=== PATIENT | female | born 1985 | race Caucasian/White ===

== ENCOUNTER 2016-08-29 19:05 | Emergency (ER) | payer OTHER ==
[~2016-08-29] VITALS: Ht 160 cm; Wt 98.8 kg
[2016-08-29 19:13] VITALS: TEMP 37; Ht 160 cm; Wt 98.8 kg
[2016-08-29] MEDS ORDERED: SODIUM CHLORIDE 0.9% 1000ML 500 ML IV STA (20:45)
[2016-08-29] MEDS ORDERED: SODIUM CHLORIDE 0.9% 1000ML 1,000 ML IV STA (20:45)
--- NOTE | 2016-08-29 20:59 | EMERGENCY ROOM VISIT NOTE ---
History Report prepared by Otto: Brianna Jalloh Under the Supervision of: Dr. Lui Patel M.D. First contact with patient: 20:40 Chief Complaint: ED VAG BLEEDING Stated Complaint: VAGINAL BLEEDING, RIGHT SIDE ABDOMINAL PAIN History of Present Illness The patient is a 31 year old female who presents to the Emergency Room with complaints of intermittent vaginal bleeding starting a few weeks ago and worsening last night. She describes quality of the bleeding to be a brown-red in color. She denies any blood in urine or abnormal vaginal discharge. She reports intermittent, right sided abdominal pain occurring for the past few years and worsening in the past 6 months. She currently rates a pain intensity of 7/10. She has been taking Tylenol and Ibuprofen without relief. She has lost weight in the past few months. She denies fevers, cough, cold, congestion, new issues with bowel movements, or any other complaints. The patient has a history of PCOS, hysterectomy, Bartholin cyst, and cholecystectomy. She denies any history of oophorectomy and appendectomy. She last had an abdominal CT scan about a month and a half ago. Source of History: patient Onset: a few weeks ago Position: other (global) Quality: other (vaginal bleeding) Timing: intermittent, worsening Associated Symptoms: + abdominal pain, No cough, No fevers Review of Systems See HPI for pertinent positives & negatives. A total of 10 systems reviewed and were otherwise negative. Past Medical & Surgical Medical Problems: (1) Bartholin cyst (2) PCOS (polycystic ovarian syndrome) Surgical Problems: (1) H/O: hysterectomy (2) Hx of cholecystectomy Family History Patient reports no known family medical history. Social History Smoking Status: Current Every Day Smoker Marital Status: single Occupation Status: employed Current/Historical Medications Scheduled Metformin Hcl (Glucophage), 500 MG PO QAM Metformin Hcl (Glucophage), 1,000 MG PO QPM Spironolactone (Aldactone), 50 MG PO BID Scheduled PRN Acetaminophen (Tylenol), 1,000 MG PO Q6H PRN for Pain or Fever Ibuprofen (Motrin), 600 MG PO Q8 PRN for Pain Allergies Coded Allergies: Cyclobenzaprine (Verified Allergy, Severe, INCREASES ANXIETY, 08/29/16) Haloperidol (Verified Allergy, Severe, INCREASES ANXIETY, 08/29/16) Hyoscyamine (Verified Allergy, Severe, ANAPHYLAXIS, 08/29/16) Meloxicam (Verified Allergy, Severe, HIVES, 08/29/16) Ondansetron (Verified Allergy, Severe, HIVES, 08/29/16) Orphenadrine (Verified Allergy, Severe, INCREASE ANXIETY, 08/29/16) Sodium Metabisulfite (Verified Allergy, Severe, INCREASES ANXIETY, 08/29/16 ) Sulfa Antibiotics (Verified Allergy, Severe, HIVES-N/V, 08/29/16) Cephalexin (Verified Allergy, Intermediate, DIARRHEA, 08/29/16) Methocarbamol (Verified Allergy, Intermediate, RASH, 08/29/16) Nitrofurantoin (Verified Allergy, Intermediate, DIARRHEA-NAUSEA, 08/29/16) Promethazine (Verified Allergy, Intermediate, GI SYMPTOMS, 08/29/16) Sertraline (Verified Allergy, Intermediate, TMJ REACTION, 08/29/16) Uncoded Allergies: SALIDEX (Allergy, Severe, HIVES, 08/29/16) Physical Exam Vital Signs Date Time Temp Pulse Resp B/P Pulse Ox O2 Delivery O2 Flow Rate FiO2 08/29/16 23:09 64 16 122/84 98 Room Air 08/29/16 22:06 78 18 125/80 98 Room Air 08/29/16 19:13 37.0 79 16 133/85 100 Room Air Physical Exam GENERAL: Patient is in no acute distress. HEENT: No acute trauma, normocephalic atraumatic, mucous membranes moist, no nasal congestion, no scleral icterus. NECK: No stridor, no adenopathy, no meningismus, trachea is midline. LUNGS: Clear to auscultation bilaterally, no wheeze, no rhonchi, breath sounds equal. HEART: Without murmurs gallops or rubs, regular rate and rhythm. ABDOMEN: Soft, tenderness in the right lower quadrant and right pelvis, bowel sounds positive, no hernias, no peritonitis. PELVIC EXAM: No discharge noted externally, speculum exam revealed no blood, no concerning discharge. EXTREMITIES: No cyanosis or edema, full range of motion of all the joints without pain or difficulty, no signs for acute trauma. NEUROLOGIC: Oriented x 3, no acute motor or sensory deficits, no focal weakness. SKIN: No rash, no jaundice, no diaphoresis. Medical Decision & Procedures ER Provider Diagnostic Interpretation: US results as stated below per my review and radiologist interpretation: PELVIC ULTRASOUND, TRANSABDOMINAL AND TRANSVAGINAL HISTORY: Vaginal bleeding. COMPARISON: None. FINDINGS: Uterus: Surgically absent. Right ovary: Obscured by overlying bowel gas. Left ovary: Obscured by overlying bowel gas. Miscellaneous:No pelvic free fluid. IMPRESSION: 1. No significant abnormality identified within the pelvis. 2. The uterus is surgically absent. 3. The ovaries were obscured by overlying bowel gas. Electronically signed by: Gilles Li M.D. 08/29/2016 10:02 PM Dictated Date/Time: 08/29/2016 10:01 PM Laboratory Results 08/29/16 21:01 Red Blood Count 4.83, Mean Corpuscular Volume 89.4, Mean Corpuscular Hemoglobin 30.4, Mean Corpuscular Hemoglobin Concent 34.0, Mean Platelet Volume 10.0, Neutrophils (%) (Auto) 70.5, Lymphocytes (%) (Auto) 21.4, Monocytes (%) (Auto) 5.2, Eosinophils (%) (Auto) 2.4, Basophils (%) (Auto) 0.2, Neutrophils # (Auto) 8.06, Lymphocytes # (Auto) 2.45, Monocytes # (Auto) 0.59, Eosinophils # (Auto) 0.28, Basophils # (Auto) 0.02 08/29/16 21:01 Test 08/29/16 21:01 08/29/16 22:10 White Blood Count 11.43 K/uL (4.8-10.8) Red Blood Count 4.83 M/uL (4.2-5.4) Hemoglobin 14.7 g/dL (12.0-16.0) Hematocrit 43.2 % (37-47) Mean Corpuscular Volume 89.4 fL (80-100) Mean Corpuscular Hemoglobin 30.4 pg (25-34) Mean Corpuscular Hemoglobin Concent 34.0 g/dl (32-36) Platelet Count 287 K/uL (130-400) Mean Platelet Volume 10.0 fL (7.4-10.4) Neutrophils (%) (Auto) 70.5 % Lymphocytes (%) (Auto) 21.4 % Monocytes (%) (Auto) 5.2 % Eosinophils (%) (Auto) 2.4 % Basophils (%) (Auto) 0.2 % Neutrophils # (Auto) 8.06 K/uL (1.4-6.5) Lymphocytes # (Auto) 2.45 K/uL (1.2-3.4) Monocytes # (Auto) 0.59 K/uL (0.11-0.59) Eosinophils # (Auto) 0.28 K/uL (0-0.5) Basophils # (Auto) 0.02 K/uL (0-0.2) RDW Standard Deviation 42.9 fL (36.4-46.3) RDW Coefficient of Variation 13.1 % (11.5-14.5) Immature Granulocyte % (Auto) 0.3 % Immature Granulocyte # (Auto) 0.03 K/uL (0.00-0.02) Anion Gap 7.0 mmol/L (3-11) Est Creatinine Clear Calc Drug Dose 119.7 ml/min Estimated GFR () 120.1 Estimated GFR (Non- 103.6 BUN/Creatinine Ratio 11.2 (10-20) Calcium Level 8.5 mg/dl (8.5-10.1) Total Bilirubin 0.3 mg/dl (0.2-1) Aspartate Amino Transf (AST/SGOT) 12 U/L (15-37) Alanine Aminotransferase (ALT/SGPT) 19 U/L (12-78) Alkaline Phosphatase 107 U/L (45-117) Total Protein 7.7 gm/dl (6.4-8.2) Albumin 3.6 gm/dl (3.4-5.0) Globulin 4.1 gm/dl (2.5-4.0) Albumin/Globulin Ratio 0.9 (0.9-2) Urine Color YELLOW Urine Appearance CLEAR (CLEAR) Urine pH 7.0 (4.5-7.5) Urine Specific [place] 1.013 (1.000-1.030) Urine Protein NEG (NEG) Urine Glucose (UA) NEG (NEG) Urine Ketones NEG (NEG) Urine Occult Blood NEG (NEG) Urine Nitrite NEG (NEG) Urine Bilirubin NEG (NEG) Urine Urobilinogen NEG (NEG) Urine Leukocyte Esterase NEG (NEG) Laboratory results reviewed by me. Medications Administered Medications (Trade) Dose Ordered Sig/Willie Route Start Time Stop Time Status Last Admin Dose Admin Sodium Chloride (Nss 1000ml) 500 ml @ 999 mls/hr Q31M STAT IV 08/29/16 20:45 08/29/16 21:15 DC 08/29/16 20:45 999 MLS/HR ED Course 2039: The patient was evaluated in room C07. A complete history and physical exam was performed. 2044: Sodium Chloride 500 ml @ 999 mls/hr IV 2253: Reevaluated the patient. Discussed results and discharge instructions: She verbalized understanding and agreement. The patient is ready for discharge. Medical Decision Differential diagnosis includes but is not limited to ovarian cyst, musculoskeletal pain, hernia, appendicitis, UTI, renal colic, ovarian torsion. There is a mild leukocytosis, this could be consistent with infection or just the stress of her presentation. No concerning anemia. No significant electrolyte abnormality, kidney failure or hepatitis. Urinalysis does not show hematuria or infection. Pelvic ultrasound could not identify the ovaries, there was no pathology noted by ultrasound. Vaginal exam revealed no evidence for vaginal discharge or vaginal bleeding. The patient was reassured by her testing. She has had ongoing issues for months. I think it is now time for her to see an [facility] doctor. I did refer her to the OB doctor on-call. The patient was felt stable for discharge. She was in no way toxic or febrile. There was no peritonitis. She did not require anything for pain during her ER stay. The cause of all her pain is at this point unclear. Further workup as an outpatient is required. Impression Primary Impression: Pelvic pain Additional Impression: Vaginal bleeding Scribe Attestation The scribe's documentation has been prepared under my direction and personally reviewed by me in its entirety. I confirm that the note above accurately reflects all work, treatment, procedures, and medical decision making performed by me. Departure Information Dispostion Home / Self-Care Referrals Al Haro M.D., George A. M.D. 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
[2016-08-29] MEDS ORDERED: IBUP-1450 PO (21:10)
[2016-08-29 21:14] LABS: BASO % 0.2 %; BASO ABS # 0.02 K/uL (0-0.2); COMPLETE YES; EOS % 2.4 %; HEMATOCRIT 43.2 % (37-47); IG% 0.3 %; LYMPH % 21.4 %; LYMPH ABS # 2.45 K/uL (1.2-3.4); MEAN CELL VOLUME 89.4 fL (80-100); MEAN CORPUSCULAR HEMOGLOBIN 30.4 pg (25-34); MONO % 5.2 %; NEUT % 70.5 %; PLATELET COUNT 287 K/uL (130-400); RED BLOOD COUNT 4.83 M/uL (4.2-5.4); WHITE BLOOD COUNT 11.43 K/uL (4.8-10.8)
[2016-08-29 21:31] LABS: BUN/CREATININE RATIO 11.2 (10-20); CALCIUM 8.5 mg/dl (8.5-10.1); CREATININE 0.77 mg/dl (0.60-1.20); POTASSIUM 3.7 mmol/L (3.5-5.1)
[2016-08-29 21:34] LABS: ALB/GLOB RATIO 0.9 (0.9-2)
--- NOTE | 2016-08-29 22:04 | DIAGNOSTIC IMAGING REPORT ---
PELVIC ULTRASOUND, TRANSABDOMINAL AND TRANSVAGINAL HISTORY: Vaginal bleeding. COMPARISON: None. FINDINGS: Uterus: Surgically absent. Right ovary: Obscured by overlying bowel gas. Left ovary: Obscured by overlying bowel gas. Miscellaneous:No pelvic free fluid. IMPRESSION: 1. No significant abnormality identified within the pelvis. 2. The uterus is surgically absent. 3. The ovaries were obscured by overlying bowel gas. Electronically signed by: Gilles Li M.D. 08/29/2016 10:02 PM Dictated Date/Time: 08/29/2016 10:01 PM
[2016-08-29 22:42] LABS: URINE APPEARANCE CLEAR (CLEAR); URINE BILIRUBIN NEG (NEG); URINE COLOR YELLOW; URINE NITRITE NEG (NEG); URINE SPECIFIC GRAVITY 1.013 (1.000-1.030); UROBILINOGEN NEG (NEG); ZZUR CULT IF INDIC CLEAN CATCH NO
[2016-08-29 22:48] LABS: MANUAL MICROSCOPIC REQUIRED? NO; REVIEW REQ? NO
[2016-08-29 23:09] VITALS: BP 122/84; PULSE 64; O2SAT 98
== END 2016-08-29 23:10 | disposition home or self-care (01) ==
LOC: C.EDB 19:07 → C.EDC 23:10
DX: R10.2 Pelvic and perineal pain (principal); R10.31 Right lower quadrant pain; N93.9 Abnormal uterine and vaginal bleeding, unspecified; Z79.84 Long term (current) use of oral hypoglycemic drugs; Z79.891 Long term (current) use of opiate analgesic; F17.200 Nicotine dependence, unspecified, uncomplicated

== ENCOUNTER 2016-10-03 18:49 | Emergency (ER) | payer OTHER ==
[~2016-10-03] VITALS: Ht 160 cm; Wt 100.3 kg
[~2016-10-03 18:49] MED LIST: IBUP-1450 PO
[2016-10-03 18:52] VITALS: TEMP 36.4; Ht 160 cm; Wt 100.3 kg
[2016-10-03] MEDS ORDERED: SODIUM CHLORIDE 0.9% 1000ML 1,000 ML IV STA (19:05)
[2016-10-03] MEDS ORDERED: DiphenhydrAMINE HCL 50 MG/ML VIAL IV STA (19:05)
[2016-10-03] MEDS ORDERED: METOCLOPRAMIDE HCL INJ 5 MG/ML 2 ML VIAL IV STA (19:05)
[2016-10-03] MEDS ORDERED: OPTIRAY 320 IV PRN (19:15)
[2016-10-03] MEDS: FENTANYL CITRATE INJ 50 MCG/1 ML 2 ML VIAL IV PRN ×2 (19:35→20:52)
[2016-10-03] MEDS ORDERED: IBUP-1050 PO (19:50)
[2016-10-03 19:55] LABS: BASO % 0.1 %; BASO ABS # 0.02 K/uL (0-0.2); COMPLETE YES; HEMATOCRIT 46.8 % (37-47); IG% 0.4 %; LYMPH % 30.2 %; LYMPH ABS # 4.39 K/uL (1.2-3.4); MEAN CELL VOLUME 91.2 fL (80-100); MEAN CORPUSCULAR HEMOGLOBIN 31.2 pg (25-34); MEAN CORPUSCULAR HGB CONC 34.2 g/dl (32-36); MEAN PLATELET VOLUME 9.8 fL (7.4-10.4); MONO % 6.4 %; NEUT % 61.9 %; PLATELET COUNT 315 K/uL (130-400); RED BLOOD COUNT 5.13 M/uL (4.2-5.4); WHITE BLOOD COUNT 14.53 K/uL (4.8-10.8)
[2016-10-03 20:03] LABS: URINE APPEARANCE CLEAR (CLEAR); URINE BILIRUBIN NEG (NEG); URINE COLOR YELLOW; URINE NITRITE NEG (NEG); URINE SPECIFIC GRAVITY 1.012 (1.000-1.030); UROBILINOGEN NEG (NEG); ZZUR CULT IF INDIC CLEAN CATCH NO
[2016-10-03 20:08] LABS: MANUAL MICROSCOPIC REQUIRED? NO; REVIEW REQ? NO
--- NOTE | 2016-10-03 20:16 | DIAGNOSTIC IMAGING REPORT ---
PELVIC ULTRASOUND CLINICAL HISTORY: Right-sided pelvic pain. COMPARISON STUDY: Pelvic ultrasound August 29, 2016. TECHNIQUE: Transabdominal sonography of the pelvis was performed. FINDINGS: The uterus is surgically absent. The right ovary measures 3.9 x 3.2 x 3.7 cm. There is a 3.7 cm septated cyst within the right ovary which has developed since exam of August 29, 2016. The left ovary measures 1.9 x 1.2 x 1.2 cm. There is color flow within each ovary. IMPRESSION: 1. Interval development of a 3.7 cm septated right ovarian cyst since ultrasound of August 29, 2016. 2. Surgically absent uterus. Electronically signed by: Shashank Coronel M.D. 10/03/2016 8:14 PM Dictated Date/Time: 10/03/2016 8:12 PM
[2016-10-03 20:20] LABS: BUN/CREATININE RATIO 17.3 (10-20); CALCIUM 8.9 mg/dl (8.5-10.1); CREATININE 0.85 mg/dl (0.60-1.20); POTASSIUM 3.1 mmol/L (3.5-5.1)
[2016-10-03] MEDS ORDERED: GLC/500 PO (21:10)
[2016-10-03] MEDS ORDERED: ACET-1256 PO (21:10)
[2016-10-03] MEDS ORDERED: METF-384 PO (21:10)
[2016-10-03] MEDS ORDERED: SPIR50TA2 PO (21:10)
--- NOTE | 2016-10-03 22:14 | DIAGNOSTIC IMAGING REPORT ---
CT OF THE ABDOMEN AND PELVIS WITH CONTRAST CLINICAL HISTORY: Right lower quadrant pain. COMPARISON STUDY: Pelvic ultrasound performed earlier today. TECHNIQUE: Following IV administration of 119 mL of Optiray-320, axial images of the abdomen and pelvis were obtained from the lung bases to the proximal femurs. Images were reviewed in the axial, sagittal, and coronal planes. IV contrast was administered without complication. Oral contrast was administered. CT DOSE: 1081.19 mGy.cm FINDINGS: Lung bases are clear. The liver, spleen, adrenal glands and pancreas are normal. There is no biliary ductal dilatation status post cholecystectomy. There is a 3 mm right renal calculus. There are no ureteral calculi. No hydronephrosis is present. Note is made of a 3.8 cm right ovarian cyst, as shown on prior ultrasound. The uterus is surgically absent. The caliber and wall thickness of small and large bowel are normal. The appendix is normal. There is no lymphadenopathy. There are bilateral L5 pars defects without spondylolisthesis. IMPRESSION: 1. Normal appendix. 2. 3.8 cm right ovarian cyst. 3. 3 mm right renal calculus. No ureteral calculi or hydronephrosis. Electronically signed by: Shashank Coronel M.D. 10/03/2016 10:12 PM Dictated Date/Time: 10/03/2016 10:09 PM
[2016-10-03 22:42] VITALS: BP 129/78; PULSE 73; O2SAT 98
[2016-10-03] MEDS ORDERED: OXYC1TAB3 PO (22:51)
[2016-10-03] MEDS ORDERED: OXYCODONE IR HOME PACK PO ONE (23:00)
--- NOTE | 2016-10-04 01:09 | EMERGENCY ROOM VISIT NOTE ---
History Report prepared by Otto: Dipti Lipscomb Under the Supervision of: Dr. Андрей Bryson M.D. First contact with patient: 19:02 Chief Complaint: CONSTIPATION Stated Complaint: ABD PAIN, CONSTIPATION NAUSEA Nursing Triage Summary: pt has been constipated x 4 days. has increased fiber and fiber capsules. took dulcolax first day. now having some abd discomfort and nausea History of Present Illness The patient is a 31 year old female who presents to the Emergency Room with complaints of an episode of constipation starting four days ago. She states that two days ago she started to have lower right abdominal pain. She rates her pain as an 8/10 in severity. She notes that she has taken Tylenol and Ibuprofen with no relief. The patient reports that the pain worsens with sudden movements and when she sits up.She states that she decided to come to the ED because she called her PCP who told her to come in for evaluation. The patient states that she has a history of PCOS, but notes that the pain is different from that. She also states that she has had four pelvic surgeries, a hysterectomy in 2014, and a cholecystectomy. The patient complains of headache, nausea, lower back pain, and shakiness. Pt denies LOC, fevers, chills, diaphoresis, visual changes, neck pain, chest pain, breathing difficulties, vomiting, abdominal pain, melena , hematochezia, urinary symptoms, numbness, weakness, lymphadenopathy, rash, or other complaints. She reports that she last had water two hours ago and food six hours ago. Source of History: patient Onset: four days ago Position: abdomen (RLQ) Quality: other (global) Timing: other (episode) Modifying Factors (Worsening): movement, other (sitting up) Associated Symptoms: + back pain, + headache, + nausea Note: The patient notes shakiness. Review of Systems See HPI for pertinent positives and negatives. A total of ten systems were reviewed and were otherwise negative. Past Medical & Surgical Medical Problems: (1) Bartholin cyst (2) PCOS (polycystic ovarian syndrome) Surgical Problems: (1) H/O: hysterectomy (2) Hx of cholecystectomy Family History Cancer Diabetes mellitus Gallbladder disease Heart disease Hypertension Social History Smoking Status: Current Every Day Smoker Marital Status: single Housing Status: lives with family Occupation Status: employed Current/Historical Medications Scheduled Metformin Hcl (Glucophage), 500 MG PO QAM Metformin Hcl (Glucophage), 1,000 MG PO QPM Spironolactone (Aldactone), 50 MG PO BID Scheduled PRN Acetaminophen (Tylenol), 1,000 MG PO Q6H PRN for Pain or Fever Ibuprofen (Motrin), 600 MG PO Q8 PRN for Pain Ibuprofen (Advil), 400-600 MG PO Q6H PRN for Headache or Pain Oxycodone Ir (Roxicodone Ir), 1-2 TAB PO Q4H PRN for Pain Allergies Coded Allergies: Cyclobenzaprine (Verified Allergy, Severe, INCREASES ANXIETY, 08/29/16) Haloperidol (Verified Allergy, Severe, INCREASES ANXIETY, 08/29/16) Hyoscyamine (Verified Allergy, Severe, ANAPHYLAXIS, 08/29/16) Meloxicam (Verified Allergy, Severe, HIVES, 08/29/16) Ondansetron (Verified Allergy, Severe, HIVES, 08/29/16) Orphenadrine (Verified Allergy, Severe, INCREASE ANXIETY, 08/29/16) Sodium Metabisulfite (Verified Allergy, Severe, INCREASES ANXIETY, 08/29/16 ) Sulfa Antibiotics (Verified Allergy, Severe, HIVES-N/V, 08/29/16) Cephalexin (Verified Allergy, Intermediate, DIARRHEA, 08/29/16) Methocarbamol (Verified Allergy, Intermediate, RASH, 08/29/16) Nitrofurantoin (Verified Allergy, Intermediate, DIARRHEA-NAUSEA, 08/29/16) Promethazine (Verified Allergy, Intermediate, GI SYMPTOMS, 08/29/16) Sertraline (Verified Allergy, Intermediate, TMJ REACTION, 08/29/16) Uncoded Allergies: SALIDEX (Allergy, Severe, HIVES, 08/29/16) Physical Exam Vital Signs Date Time Temp Pulse Resp B/P Pulse Ox O2 Delivery O2 Flow Rate FiO2 10/03/16 22:42 73 18 129/78 98 Room Air 10/03/16 20:37 65 18 118/76 98 Room Air 10/03/16 20:37 66 18 118/76 98 Room Air 10/03/16 18:52 36.4 84 18 148/90 99 Room Air Physical Exam GENERAL: Awake, alert, well-appearing, in no distress. Patient appears uncomfortable. HENT: Normocephalic, atraumatic. Oropharynx unremarkable. EYES: Normal conjunctiva. Sclera non-icteric. NECK: Supple. No nuchal rigidity. FROM. No JVD. RESPIRATORY: Clear to auscultation. CARDIAC: Regular rate, normal rhythm. Extremities warm and well perfused. Pulses equal. ABDOMEN: Soft, non-distended. Has tenderness to palpation in right lower quadrant. Has rebound and guarding in right lower quadrant. No masses. Positive Rovsing sign, positive obturator. Tenderness to percussion. RECTAL: Deferred. MUSCULOSKELETAL: Chest examination reveals no tenderness. The back is symmetrical on inspection without obvious abnormality. There is no CVA tenderness to palpation. No joint edema. LOWER EXTREMITIES: Calves are equal size bilaterally and non-tender. No edema. No discoloration. NEURO: Normal sensorium. No sensory or motor deficits noted. SKIN: No rash or jaundice noted. Medical Decision & Procedures ER Provider Diagnostic Interpretation: X ray results as stated below per my interpretation and radiologist interpretation. Other radiology results as stated below per my review and radiologist interpretation. PELVIC ULTRASOUND CLINICAL HISTORY: Right-sided pelvic pain. COMPARISON STUDY: Pelvic ultrasound August 29, 2016. TECHNIQUE: Transabdominal sonography of the pelvis was performed. FINDINGS: The uterus is surgically absent. The right ovary measures 3.9 x 3.2 x 3.7 cm. There is a 3.7 cm septated cyst within the right ovary which has developed since exam of August 29, 2016. The left ovary measures 1.9 x 1.2 x 1.2 cm. There is color flow within each ovary. IMPRESSION: 1. Interval development of a 3.7 cm septated right ovarian cyst since ultrasound of August 29, 2016. 2. Surgically absent uterus. Electronically signed by: Shashank Coronel M.D. 10/03/2016 8:14 PM Dictated Date/Time: 10/03/2016 8:[address] OF THE ABDOMEN AND PELVIS WITH CONTRAST CLINICAL HISTORY: Right lower quadrant pain. COMPARISON STUDY: Pelvic ultrasound performed earlier today. TECHNIQUE: Following IV administration of 119 mL of Optiray-320, axial images of the abdomen and pelvis were obtained from the lung bases to the proximal femurs. Images were reviewed in the axial, sagittal, and coronal planes. IV contrast was administered without complication. Oral contrast was administered. CT DOSE: 1081.19 mGy.cm FINDINGS: Lung bases are clear. The liver, spleen, adrenal glands and pancreas are normal. There is no biliary ductal dilatation status post cholecystectomy. There is a 3 mm right renal calculus. There are no ureteral calculi. No hydronephrosis is present. Note is made of a 3.8 cm right ovarian cyst, as shown on prior ultrasound. The uterus is surgically absent. The caliber and wall thickness of small and large bowel are normal. The appendix is normal. There is no lymphadenopathy. There are bilateral L5 pars defects without spondylolisthesis. IMPRESSION: 1. Normal appendix. 2. 3.8 cm right ovarian cyst. 3. 3 mm right renal calculus. No ureteral calculi or hydronephrosis. Electronically signed by: Shashank Coronel M.D. 10/03/2016 10:12 PM Dictated Date/Time: 10/03/2016 10:09 PM Laboratory Results 10/03/16 19:25 Red Blood Count 5.13, Mean Corpuscular Volume 91.2, Mean Corpuscular Hemoglobin 31.2, Mean Corpuscular Hemoglobin Concent 34.2, Mean Platelet Volume 9.8, Neutrophils (%) (Auto) 61.9, Lymphocytes (%) (Auto) 30.2, Monocytes (%) (Auto) 6.4, Eosinophils (%) (Auto) 1.0, Basophils (%) (Auto) 0.1, Neutrophils # (Auto) 8.99, Lymphocytes # (Auto) 4.39, Monocytes # (Auto) 0.93, Eosinophils # (Auto) 0.14, Basophils # (Auto) 0.02 10/03/16 19:25 Test 10/03/16 00:00 10/03/16 19:25 Urine Color YELLOW Urine Appearance CLEAR (CLEAR) Urine pH 5.0 (4.5-7.5) Urine Specific [place] 1.012 (1.000-1.030) Urine Protein NEG (NEG) Urine Glucose (UA) NEG (NEG) Urine Ketones NEG (NEG) Urine Occult Blood NEG (NEG) Urine Nitrite NEG (NEG) Urine Bilirubin NEG (NEG) Urine Urobilinogen NEG (NEG) Urine Leukocyte Esterase NEG (NEG) Urine Test NEG (NEG) White Blood Count 14.53 K/uL (4.8-10.8) Red Blood Count 5.13 M/uL (4.2-5.4) Hemoglobin 16.0 g/dL (12.0-16.0) Hematocrit 46.8 % (37-47) Mean Corpuscular Volume 91.2 fL (80-100) Mean Corpuscular Hemoglobin 31.2 pg (25-34) Mean Corpuscular Hemoglobin Concent 34.2 g/dl (32-36) Platelet Count 315 K/uL (130-400) Mean Platelet Volume 9.8 fL (7.4-10.4) Neutrophils (%) (Auto) 61.9 % Lymphocytes (%) (Auto) 30.2 % Monocytes (%) (Auto) 6.4 % Eosinophils (%) (Auto) 1.0 % Basophils (%) (Auto) 0.1 % Neutrophils # (Auto) 8.99 K/uL (1.4-6.5) Lymphocytes # (Auto) 4.39 K/uL (1.2-3.4) Monocytes # (Auto) 0.93 K/uL (0.11-0.59) Eosinophils # (Auto) 0.14 K/uL (0-0.5) Basophils # (Auto) 0.02 K/uL (0-0.2) RDW Standard Deviation 45.0 fL (36.4-46.3) RDW Coefficient of Variation 13.5 % (11.5-14.5) Immature Granulocyte % (Auto) 0.4 % Immature Granulocyte # (Auto) 0.06 K/uL (0.00-0.02) Anion Gap 6.0 mmol/L (3-11) Est Creatinine Clear Calc Drug Dose 109.3 ml/min Estimated GFR () 106.6 Estimated GFR (Non- 91.9 BUN/Creatinine Ratio 17.3 (10-20) Calcium Level 8.9 mg/dl (8.5-10.1) Total Bilirubin 0.6 mg/dl (0.2-1) Direct Bilirubin 0.1 mg/dl (0-0.2) Aspartate Amino Transf (AST/SGOT) 9 U/L (15-37) Alanine Aminotransferase (ALT/SGPT) 29 U/L (12-78) Alkaline Phosphatase 87 U/L (45-117) Total Protein 8.0 gm/dl (6.4-8.2) Albumin 4.0 gm/dl (3.4-5.0) Lipase 141 U/L (73-393) Laboratory results reviewed by me Olivares Administered Medications (Trade) Dose Ordered Sig/Willie Route Start Time Stop Time Status Last Admin Dose Admin Sodium Chloride (Nss 1000ml) 1,000 ml @ 999 mls/hr Q1H1M STAT IV 10/03/16 19:05 10/03/16 20:05 DC 10/03/16 19:34 999 MLS/HR Fentanyl Citrate (Fentanyl Inj) 100 mcg Q20M PRN IV 10/03/16 19:15 10/04/16 00:49 DC 10/03/16 20:52 100 MCG Metoclopramide HCl (Reglan Inj) 10 mg NOW STAT IV 10/03/16 19:05 10/03/16 19:12 DC 10/03/16 19:34 10 MG Diphenhydramine HCl (Benadryl Inj) 25 mg NOW STAT IV 10/03/16 19:05 10/03/16 19:12 DC 10/03/16 19:34 25 MG Oxycodone HCl (Roxicodone Immediate Rel 5MG Home Pack) 1 homepack UD ONCE PO 10/03/16 23:00 10/03/16 23:01 DC 10/03/16 22:58 1 HOMEPACK ED Course 3: The patient was evaluated in room B2. A complete history and physical exam was performed. 1904: Ordered Benedryl Inj 25 mg IV, Reglan Inj 10 mg IV, NSS 1000 ml @ 999 mls/ hr IV. 1914: Ordered Fentanyl Inj 100 mcg PRN IV pain. 0: I reevaluated the patient and she is feelling better. I discussed the exam findings and she verbally expressed understanding. I repeated the examination and found that she is yeast distiller in her right side. She is going to touch base with the OBGYN here. 2232: Discussed the patient's case with Dr. Wu. He stated that treat conservatively and follow up in the office. 2252: I reevaluated the patient. Discussed results and discharge instructions: She verbalized understanding and agreement. The patient is ready for discharge. Medical Decision Triage Nursing notes reviewed. The patient's presentation and history were concerning for abdominal pain. Etiologies such as appendicitis, ovarian pathology, , ovarian torsion, diverticulitis, obstruction, inflammatory bowel disease, renal colic, PUD, biliary pathology, pancreatitis, mesenteric ischemia, aortic pathology, infections, genitourinary, UTI, perforated viscus, as well as others were entertained. The patient was evaluated. She had blood work obtained. She was treated with normal saline, Reglan, Benadryl, and fentanyl. On reassessment she was doing better. Her CBC revealed a mild leukocytosis. Chemistry panel was unremarkable. Urinalysis and test were unremarkable. The patient underwent ultrasound imaging which revealed an ovarian cyst on the right side. No sign of torsion. The patient underwent CT imaging and this revealed the ovarian cyst but no evidence of significant free fluid, appendicitis, obstruction, or other problem. The patient was informed. Repeat abdominal examination was improved. I suspect that the ovary may be the cause of her issues as her appendix is unremarkable and her pain is located right over the area of the ovary. She felt comfortable with conservative management. I did consult with [facility] MEAT GRADING MACHINE OPERATOR who felt this was reasonable as well. The patient will be followed up in the office. If she worsens in any way she will come back. The patient was given a home pack for oxycodone and a small prescription. By the evaluation outlined above other emergent etiologies such as those listed in the differential, as well as others, were deemed relatively unlikely. The patient was informed about the findings as listed above. All questions were answered and she was pleased with the treatment. Return instructions were outlined and the patient was discharged in stable condition. The patient was referred to MEAT GRADING MACHINE OPERATOR for follow-up for a recheck of the current condition. The chart was completed utilizing [employer] Speech voice recognition software. Grammatical errors, random word insertions, pronoun errors, and incomplete sentences are an occasional consequence of this system due to software limitations, ambient noise, and hardware issues. Any formal questions or concerns about the content, text, or information contained within the body of this dictation should be directly addressed to the physician for clarification. [place] Drug Monitoring Program Search Results: patient reviewed within database, no issues identified Consults Time Called: 2229 Consulting Physician: Dr. Wu- OBCLARA Returned Call: [phone] Discussed the patient's case with Dr. Wu. He stated that treat conservatively and follow up in the office. Impression Primary Impression: Right lower quadrant abdominal pain Additional Impression: Right ovarian cyst Scribe Attestation The scribe's documentation has been prepared under my direction and personally reviewed by me in its entirety. I confirm that the note above accurately reflects all work, treatment, procedures, and medical decision making performed by me. Departure Information Dispostion Home / Self-Care Prescriptions Oxycodone Ir (Roxicodone Ir) 5 Mg Tab 1-2 TAB PO Q4H Y for Pain, #10 TAB Prov: Андрей Bryson MD 10/03/16 Referrals Rohit Nevarez M.D. (PCP) Forms HOME CARE DOCUMENTATION FORM, IMPORTANT VISIT INFORMATION, Work Instructions Patient Instructions [facility] Additional Instructions ABDOMINAL PAIN INSTRUCTIONS: DO NOT drive, drink alcohol, operate machinery, or perform dangerous activities today. You were given medications in the ER that can affect your ability to safely function or operate a vehicle. Oxycodone (OxyIR) 5mg: Take 1-2 pills every four hours for breakthrough pain. Avoid alcohol, operating machinery or dangerous equipment, working on ladders or roofs, DRIVING, or situations where being under the influence may be dangerous. It is recommended to use an [id number] stool softener such as Colace, 100mg twice daily while taking this medication to avoid constipation. Acetaminophen(Tylenol) may be used for fever or pain. Use 1000mg every six hours as needed. Avoid using more than 4000mg in a 24 hour period. Rest and drink plenty of fluids as tolerated. Slow sips of water or sports drinks are recommended instead of large amounts all at once. Continue current medications. Once your stomach is settled start with a clear liquid diet (jello, soup broth, etc.) and then advance as tolerated. You should avoid full, heavy meals for about 24 hrs from the time your symptoms resolved. Return to the ER immediately for worsening or persistent abdominal pain, vomiting, fevers, chest pains, difficulty breathing, black or bloody stools, worsening of your condition, or as needed. Follow up with MEAT GRADING MACHINE OPERATOR this week for a recheck of your current condition. Problem Qualifiers
== END 2016-10-03 23:00 | disposition home or self-care (01) ==
LOC: C.EDB 18:50
DX: R10.31 Right lower quadrant pain (principal); N83.201 Unspecified ovarian cyst, right side; Z80.9 Family history of malignant neoplasm, unspecified; Z83.3 Family history of diabetes mellitus; Z83.79 Family history of other diseases of the digestive system; Z82.49 Family history of ischemic heart disease and other diseases of the circulatory system; F17.210 Nicotine dependence, cigarettes, uncomplicated

== ENCOUNTER 2016-11-23 14:01 | Emergency (ER) | payer OTHER ==
[~2016-11-23] VITALS: Ht 160 cm; Wt 97.3 kg
[~2016-11-23 14:01] MED LIST changes: +ACET-1256 PO; +GLC/500 PO; +IBUP-1050 PO; +METF-384 PO; +OXYC1TAB3 PO; +SPIR50TA2 PO
[2016-11-23 14:03] VITALS: TEMP 36.7; Ht 160 cm; Wt 97.3 kg
[2016-11-23] MEDS ORDERED: METOCLOPRAMIDE HCL INJ 5 MG/ML 2 ML VIAL IV STA (15:58)
[2016-11-23] MEDS ORDERED: MoRPHine SULFATE 4 MG/ML 1 ML CARP\\VIAL IV STA (15:58)
[2016-11-23] MEDS ORDERED: SODIUM CHLORIDE 0.9% 1000ML 1,000 ML IV STA (15:58)
[2016-11-23 16:40] LABS: BASO % 0.2 %; BASO ABS # 0.02 K/uL (0-0.2); COMPLETE YES; EOS % 2.7 %; HEMATOCRIT 44.2 % (37-47); IG% 0.1 %; LYMPH % 25.2 %; LYMPH ABS # 2.26 K/uL (1.2-3.4); MEAN CELL VOLUME 90.9 fL (80-100); MEAN CORPUSCULAR HEMOGLOBIN 30.5 pg (25-34); MEAN CORPUSCULAR HGB CONC 33.5 g/dl (32-36); MEAN PLATELET VOLUME 10.3 fL (7.4-10.4); MONO % 5.6 %; NEUT % 66.2 %; PLATELET COUNT 289 K/uL (130-400); RED BLOOD COUNT 4.86 M/uL (4.2-5.4); WHITE BLOOD COUNT 8.96 K/uL (4.8-10.8)
[2016-11-23 16:42] LABS: URINE APPEARANCE CLEAR (CLEAR); URINE BILIRUBIN NEG (NEG); URINE COLOR YELLOW; URINE NITRITE NEG (NEG); URINE PH 5.5 (4.5-7.5); URINE SPECIFIC GRAVITY 1.014 (1.000-1.030); UROBILINOGEN NEG (NEG)
[2016-11-23 16:43] LABS: MANUAL MICROSCOPIC REQUIRED? NO; REVIEW REQ? NO
[2016-11-23 16:57] LABS: ALT/SGPT 20 U/L (12-78); AST/SGOT 9 U/L (15-37); BLOOD UREA NITROGEN 10 mg/dl (7-18); BUN/CREATININE RATIO 12.3 (10-20); CALCIUM 8.8 mg/dl (8.5-10.1); CARBON DIOXIDE 28 mmol/L (21-32); CHLORIDE 106 mmol/L (98-107); CREATININE 0.83 mg/dl (0.60-1.20); GLUCOSE 79 mg/dl (70-99); POTASSIUM 3.8 mmol/L (3.5-5.1); SODIUM 140 mmol/L (136-145)
[2016-11-23 17:00] LABS: ALKALINE PHOSPHATASE 86 U/L (45-117)
--- NOTE | 2016-11-23 18:16 | DIAGNOSTIC IMAGING REPORT ---
PELVIC ULTRASOUND CLINICAL HISTORY: Right sided abdominal pain. Evaluate for ovarian torsion or cyst rupture. COMPARISON STUDY: Pelvic ultrasound and CT of the abdomen and pelvis October 03, 2016. TECHNIQUE: Transabdominal sonography of the pelvis was performed. The patient deferred transvaginal imaging. FINDINGS: The uterus is surgically absent. This exam is suboptimal given lack of transvaginal imaging. The left ovary was not visualized. A 2.9 x 2 x 2 cm suspected right ovarian cyst is noted. This is decreased in size when compared to exam of October 03, 2016. The right ovary is not well visualized but color flow is identified within the adjacent tissue. IMPRESSION: 1. 2.9 cm right ovarian cyst, decreased in size since prior exam. 2. Evaluation for ovarian torsion is suboptimal on this transabdominal exam but there is no convincing evidence for ovarian torsion. 3. Nonvisualization of the left ovary. 4. Status post hysterectomy. Electronically signed by: Shashank Coronel M.D. 11/23/2016 6:15 PM Dictated Date/Time: 11/23/2016 6:12 PM
--- NOTE | 2016-11-23 19:10 | EMERGENCY ROOM VISIT NOTE ---
History First contact with patient: 15:50 Chief Complaint: ABDOMINAL PAIN Stated Complaint: LOWER RT ABD/BACK PAIN, NAUSEA, HX OVARIAN CYSTS History of Present Illness The patient is a 31 year old female who presents to the Emergency Room with complaints of right abdominal pain that started this morning around 9 AM. She states the pain came on fairly suddenly over about 15-20 minutes, sharp and constant, worse with movement, 7/10. She did not try any medications for the pain. She does feel slightly better with rest. She reports a normal appetite. She states about a month or so ago she had similar pain and had a workup including ultrasound and CT scan. She states "they found an large cyst on my right ovary." She reports a history of PCOS and multiple previous cysts. She also states hx of hysterectomy including her uterus, cervix, and bilateral fallopian tubes. She denies fevers, chills, chest pain, shortness of breath, back pain, nausea/vomiting, diarrhea, constipation, urinary symptoms, vaginal bleeding. Review of Systems A complete 10 point review of systems was reviewed with the patient with pertinent positives and negatives as per history of present illness. All else were negative. Past Medical/Surgical History Medical Problems: (1) Bartholin cyst (2) PCOS (polycystic ovarian syndrome) Surgical Problems: (1) H/O: hysterectomy (2) Hx of cholecystectomy Family History Cancer Diabetes mellitus Gallbladder disease Heart disease Hypertension Social History Smoking Status: Current Every Day Smoker Marital Status: single Housing Status: lives with family Occupation Status: employed Current/Historical Medications Scheduled Metformin Hcl (Glucophage), 500 MG PO QAM Metformin Hcl (Glucophage), 1,000 MG PO QPM Spironolactone (Aldactone), 50 MG PO BID Scheduled PRN Acetaminophen (Tylenol), 1,000 MG PO Q6H PRN for Pain or Fever Ibuprofen (Motrin), 600 MG PO Q8 PRN for Pain Allergies Coded Allergies: Cyclobenzaprine (Verified Allergy, Severe, INCREASES ANXIETY, 11/23/16) Haloperidol (Verified Allergy, Severe, INCREASES ANXIETY, 11/23/16) Hyoscyamine (Verified Allergy, Severe, ANAPHYLAXIS, 11/23/16) Meloxicam (Verified Allergy, Severe, HIVES, 11/23/16) Ondansetron (Verified Allergy, Severe, HIVES, 11/23/16) Orphenadrine (Verified Allergy, Severe, INCREASE ANXIETY, 11/23/16) Sodium Metabisulfite (Verified Allergy, Severe, INCREASES ANXIETY, 11/23/16 ) Sulfa Antibiotics (Verified Allergy, Severe, HIVES-N/V, 11/23/16) Cephalexin (Verified Allergy, Intermediate, DIARRHEA, 11/23/16) Methocarbamol (Verified Allergy, Intermediate, RASH, 11/23/16) Nitrofurantoin (Verified Allergy, Intermediate, DIARRHEA-NAUSEA, 11/23/16) Promethazine (Verified Allergy, Intermediate, GI SYMPTOMS, 11/23/16) Sertraline (Verified Allergy, Intermediate, TMJ REACTION, 11/23/16) Uncoded Allergies: SALIDEX (Allergy, Severe, HIVES, 08/29/16) Physical Exam Vital Signs Date Time Temp Pulse Resp B/P (MAP) Pulse Ox O2 Delivery O2 Flow Rate FiO2 11/23/16 19:45 86 20 108/73 98 Room Air 11/23/16 18:00 67 20 122/85 98 Room Air 11/23/16 16:41 60 11/23/16 16:00 64 20 120/76 96 Room Air 11/23/16 14:03 36.7 87 18 118/87 97 Room Air Physical Exam CONSTITUTIONAL: No acute distress. Nontoxic appearing. Well appearing and well nourished. Alert and oriented X 4 with normal affect. HEENT: Normocephalic, atraumatic. Pupils equal, round and reactive to light, EOMI. TMs normal. Pharynx normal. Dry mucous membranes. NECK: Supple, full active range of motion without discomfort. RESPIRATORY: Clear to auscultation bilaterally with no wheezing, crackles, rhonchi or stridor. Equal expansion bilaterally. CARDIOVASCULAR: Regular rate and rhythm with no murmurs, rubs or gallops. Normal peripheral perfusion. No edema. GASTROINTESTINAL: Right mid abdominal tenderness to palpation. Negative guarding, negative rebound, negative McBurney's, negative Matamoros's. No palpable masses. Soft, nondistended. Bowel sounds present in all quadrants. Negative CVA tenderness. MUSCULOSKELETAL: Full range of motion of all joints without discomfort. INTEGUMENTARY: No rash or other significant dermatologic conditions noted. NEUROLOGIC: Cranial nerves II-XII grossly intact. No focal neurologic deficits noted. Medical Decision & Procedures ER Provider Diagnostic Interpretation: PELVIC ULTRASOUND CLINICAL HISTORY: Right sided abdominal pain. Evaluate for ovarian torsion or cyst rupture. COMPARISON STUDY: Pelvic ultrasound and CT of the abdomen and pelvis October 03, 2016. TECHNIQUE: Transabdominal sonography of the pelvis was performed. The patient deferred transvaginal imaging. FINDINGS: The uterus is surgically absent. This exam is suboptimal given lack of transvaginal imaging. The left ovary was not visualized. A 2.9 x 2 x 2 cm suspected right ovarian cyst is noted. This is decreased in size when compared to exam of October 03, 2016. The right ovary is not well visualized but color flow is identified within the adjacent tissue. IMPRESSION: 1. 2.9 cm right ovarian cyst, decreased in size since prior exam. 2. Evaluation for ovarian torsion is suboptimal on this transabdominal exam but there is no convincing evidence for ovarian torsion. 3. Nonvisualization of the left ovary. 4. Status post hysterectomy. Laboratory Results 11/23/16 16:20 Red Blood Count 4.86, Mean Corpuscular Volume 90.9, Mean Corpuscular Hemoglobin 30.5, Mean Corpuscular Hemoglobin Concent 33.5, Mean Platelet Volume 10.3, Neutrophils (%) (Auto) 66.2, Lymphocytes (%) (Auto) 25.2, Monocytes (%) (Auto) 5.6, Eosinophils (%) (Auto) 2.7, Basophils (%) (Auto) 0.2, Neutrophils # (Auto) 5.93, Lymphocytes # (Auto) 2.26, Monocytes # (Auto) 0.50, Eosinophils # (Auto) 0.24, Basophils # (Auto) 0.02 11/23/16 16:20 Test 11/23/16 16:15 11/23/16 16:20 Urine Color YELLOW Urine Appearance CLEAR (CLEAR) Urine pH 5.5 (4.5-7.5) Urine Specific [place] 1.014 (1.000-1.030) Urine Protein NEG (NEG) Urine Glucose (UA) NEG (NEG) Urine Ketones NEG (NEG) Urine Occult Blood NEG (NEG) Urine Nitrite NEG (NEG) Urine Bilirubin NEG (NEG) Urine Urobilinogen NEG (NEG) Urine Leukocyte Esterase NEG (NEG) Urine Test NEG (NEG) White Blood Count 8.96 K/uL (4.8-10.8) Red Blood Count 4.86 M/uL (4.2-5.4) Hemoglobin 14.8 g/dL (12.0-16.0) Hematocrit 44.2 % (37-47) Mean Corpuscular Volume 90.9 fL (80-100) Mean Corpuscular Hemoglobin 30.5 pg (25-34) Mean Corpuscular Hemoglobin Concent 33.5 g/dl (32-36) Platelet Count 289 K/uL (130-400) Mean Platelet Volume 10.3 fL (7.4-10.4) Neutrophils (%) (Auto) 66.2 % Lymphocytes (%) (Auto) 25.2 % Monocytes (%) (Auto) 5.6 % Eosinophils (%) (Auto) 2.7 % Basophils (%) (Auto) 0.2 % Neutrophils # (Auto) 5.93 K/uL (1.4-6.5) Lymphocytes # (Auto) 2.26 K/uL (1.2-3.4) Monocytes # (Auto) 0.50 K/uL (0.11-0.59) Eosinophils # (Auto) 0.24 K/uL (0-0.5) Basophils # (Auto) 0.02 K/uL (0-0.2) RDW Standard Deviation 43.9 fL (36.4-46.3) RDW Coefficient of Variation 13.1 % (11.5-14.5) Immature Granulocyte % (Auto) 0.1 % Immature Granulocyte # (Auto) 0.01 K/uL (0.00-0.02) Anion Gap 6.0 mmol/L (3-11) Est Creatinine Clear Calc Drug Dose 110.1 ml/min Estimated GFR () 109.7 Estimated GFR (Non- 94.6 BUN/Creatinine Ratio 12.3 (10-20) Calcium Level 8.8 mg/dl (8.5-10.1) Total Bilirubin 0.3 mg/dl (0.2-1) Direct Bilirubin < 0.1 mg/dl (0-0.2) Aspartate Amino Transf (AST/SGOT) 9 U/L (15-37) Alanine Aminotransferase (ALT/SGPT) 20 U/L (12-78) Alkaline Phosphatase 86 U/L (45-117) Total Protein 7.5 gm/dl (6.4-8.2) Albumin 3.7 gm/dl (3.4-5.0) Medications Administered Medications (Trade) Dose Ordered Sig/Willie Route Start Time Stop Time Status Last Admin Dose Admin Sodium Chloride 1,000 ml @ 999 mls/hr Q1H1M STAT IV 11/23/16 15:58 11/23/16 16:58 DC 11/23/16 16:14 999 MLS/HR Metoclopramide HCl (Reglan Inj) 10 mg NOW STAT IV 11/23/16 15:58 11/23/16 16:02 DC 11/23/16 16:14 10 MG Morphine Sulfate (MoRPHine SULFATE INJ) 4 mg NOW STAT IV 11/23/16 15:58 11/23/16 16:02 DC 11/23/16 16:14 4 MG Medical Decision CC: Patient presenting with complaint of right sided abdominal pain Interpretation of Labs: No leukocytosis, no anemia, normal electrolytes, normal renal function, normal liver enzymes, no UTI. Differential Diagnosis: Includes, but not limited to ovarian cyst, ovarian torsion, ovarian cyst rupture, ectopic , appendicitis Medication Reconciliation: I attest that I have personally reviewed the patient' s current medication list. Vital signs review: I reviewed the patient's vital signs and interpret them as follows: T: Afebrile; BP: Normotensive; HR: WNL; RR: WNL; Pulse Ox: WNL on RA. Blood pressure screening: The patient was found to have normal blood pressure on screening and does not require follow-up for repeat blood pressure check. Summary: Patient was evaluated at bedside, history of physical exam performed. Patient is alert and oriented, no acute distress and nontoxic appearing. Resting quietly in stretcher. She has moderate tenderness to palpation of the right mid abdomen directly over the right ovary. No palpable mass. No McBurney's point tenderness, no Matamoros' s tenderness. Orders were placed at bedside for labs, UA, IV fluids and pain meds, pelvic ultrasound to evaluate for ovarian torsion versus cyst. Patient discussed with Dr. Rand, who agrees with my assessment and plan. Labs reviewed, unremarkable as above. Ultrasound reviewed, suboptimal imaging due to patient's refusal of transvaginal ultrasound. However, no overt findings concerning for ovarian torsion at this time. Patient reassessed multiple times throughout ED stay, her pain is well improved , and she states she is ready to go home. Patient was updated on all results, particularly that we are unable to fully rule out torsion at this time. She was given strict return precautions and verbalized understanding. Patient discharged in stable condition and ambulatory. Impression Primary Impression: Right ovarian cyst Additional Impression: Right sided abdominal pain Departure Information Dispostion Home / Self-Care Condition GOOD Referrals Rohit Nevarez M.D. (PCP) Patient Instructions ED Cyst Ovarian, My [facility] Additional Instructions You have been treated in the Emergency Department your Abdominal Pain. Laboratory results and imaging studies have ruled out any emergent causes for your abdominal pain which would warrant admission or surgery. However, the ultrasound images today could not completely rule out ovarian torsion (twisting of the ovary), so if your pain returns, persists, or worsens, you should be reevaluated immediately. For pain control, you can use the following [id number] medicines (if >12 yo): - Regular strength (325mg/tab) Tylenol (acetaminophen) 2 tabs every 4-6 hours as needed. Do not exceed 10 tablets in a 24 hour period. Avoid taking more than 3 grams (3000 mg) of Tylenol per day. This includes any other sources of acetaminophen you may take on a regular basis. - Regular strength (200 mg/tab) Advil (ibuprofen) 1-2 tabs every 4-6 hours as needed. Do not exceed a dose of 3200 mg per day. Drink plenty of water and stay well hydrated. As with any trip to the Emergency Department, you should follow-up with your Primary Care Provider in 2-3 days from today's visit. Return to the emergency department if your symptoms persist despite treatment plan outlined above or if the following symptoms occur: severe worsening abdominal pain, increased fevers, chills, worsening nausea/vomiting, blood in your stool or urine, or any other concerns. Problem Qualifiers
[2016-11-23 19:45] VITALS: BP 108/73; PULSE 86; O2SAT 98
== END 2016-11-23 20:17 | disposition home or self-care (01) ==
LOC: C.EDB 14:02
DX: N83.201 Unspecified ovarian cyst, right side (principal); R10.31 Right lower quadrant pain; F17.210 Nicotine dependence, cigarettes, uncomplicated

== ENCOUNTER 2021-08-16 00:41 | Observation (INO) ==
--- NOTE | 2021-08-16 01:08 | Emergency Department Note ---
History of Present Illness General Chief complaint: Chest Pain Stated complaint: CHEST PRESSURE,JAW PAIN Time Seen by Provider: 08/16/21 00:58 History of Present Illness Maximum Pain Intensity: 10 36-year-old female presents to emergency department with substernal chest pressure that radiates to her left jaw and slightly down her left shoulder. Started at 10:30 at night while at rest. Patient denies any shortness of breath nausea vomiting or diaphoresis. Patient in fact has taken aspirin prior to arrival. Patient denies any pleuritic chest pain denies shortness of breath denies fever cough cold congestion. Patient is COVID vaccinated. Patient denies history of iliac disease. Patient is a smoker, states prediabetic; currently the pain was substernal radiating to left jaw with no other symptoms. There are no other mitigating or alleviating factors Home Medications Medication Instructions Recorded Confirmed Type pantoprazole 40 mg tablet,delayed 40 mg PO DAILYBB 03/15/20 08/16/21 History release (Protonix) cetirizine 10 mg tablet (Zyrtec) 10 mg PO HS 03/30/20 08/16/21 History cholecalciferol (vitamin D3) 25 50 mcg PO HS 03/30/20 08/16/21 History mcg (1,000 unit) capsule metformin 500 mg tablet See Rx Instructions PO BID #540 tab 09/30/20 08/16/21 Rx acetaminophen 325 mg tablet 650 mg PO DIRECTED PRN 06/21/21 08/16/21 History (Tylenol) tamsulosin 0.4 mg capsule (Flomax) 0.4 mg PO HS #10 cap 06/27/21 08/16/21 Rx venlafaxine 150 mg 150 mg PO DAILY #30 cap 06/29/21 08/16/21 Rx capsule,extended release 24 hr famotidine 20 mg tablet (Pepcid) 20 mg PO HS #90 tab 07/01/21 08/16/21 Rx spironolactone 25 mg tablet 25 mg PO BID #180 tab 07/01/21 08/16/21 Rx naproxen 500 mg tablet 500 mg PO BID PRN 08/16/21 08/16/21 History penicillin V potassium 500 mg 500 mg PO QID 08/16/21 08/16/21 History tablet Allergies Allergy/AdvReac Type Severity Reaction Status Date / Time hyoscyamine Allergy Severe ANAPHYLAXIS Verified 08/16/21 01:42 meloxicam Allergy Severe HIVES Verified 08/16/21 01:42 ondansetron Allergy Severe HIVES Verified 08/16/21 01:42 Sulfa (Sulfonamide Allergy Severe HIVES-N/V Verified 08/16/21 01:42 Antibiotics) methocarbamol Allergy Intermediate RASH Verified 08/16/21 01:42 cyclobenzaprine AdvReac Severe INCREASES Verified 08/16/21 01:42 ANXIETY haloperidol AdvReac Severe INCREASES Verified 08/16/21 01:42 ANXIETY sodium metabisulfite AdvReac Severe INCREASES Verified 08/16/21 01:42 ANXIETY cephalexin AdvReac Intermediate DIARRHEA Verified 08/16/21 01:42 nitrofurantoin AdvReac Intermediate DIARRHEA-NA Verified 08/16/21 01:42 USEA promethazine AdvReac Intermediate GI SYMPTOMS Verified 08/16/21 01:42 sertraline AdvReac Intermediate TMJ Verified 08/16/21 01:42 REACTION SALIDEX Allergy Severe HIVES Uncoded 08/16/21 01:42 Past Med/Surg History Medical History Abdominal pain Anxiety Asthma no inh Chronic gastritis Delayed gastric emptying Diverticular disease Fibromyalgia Morbid obesity with BMI of 40.0-44.9, adult Nephrolithiasis hx PCOS (polycystic ovarian syndrome) PONV (postoperative nausea and vomiting) Prediabetes Sleep apnea does not tolerate CPAP TMJ (temporomandibular joint disorder) hx locking Surgical History H/O LEEP History of colonoscopy History of esophagogastroduodenoscopy (EGD) S/P laparoscopy S/P tubal ligation Status post cholecystectomy (03/2011) Status post hysterectomy (01/2015) secondary to DUB, still w/ ovaries [place] teeth extracted Family History Mother Alcohol abuse Anxiety Depression Diverticulitis Hypertension Father Diabetes Alcohol abuse Deep vein thrombosis Depression Hypertension Brother Anxiety Depression Sister Anxiety Depression PCOS (polycystic ovarian syndrome) Aunt Breast cancer Maternal Aunt Grandfather (Maternal) Coronary heart disease Myocardial infarction, Onset Age: 63 Grandmother (Paternal) Alcohol abuse Liver cirrhosis Other No family history of adverse response to anesthesia Denies family history of Ovarian cancer Prostate cancer Crohn's disease Colorectal cancer Ulcerative colitis Social History Smoking Status: Current every day smoker Tobacco Type: Cigarettes Age Started Using Tobacco: 15; packs per day: 0.5; Cigarettes Per Day: 7-10; Second Hand Exposure: No; Hx Alcohol Use: No Hx Substance Use: No Preferred Language: Burmese Communication Ability: Effective Visual Impairment: No Limitations Hearing Ability: Normal Book Sorter Required: No Beliefs That Will Affect Care: None marital status: Current Living Situation: Spouse Current Living Situation Comment: Lives with spouse and 2 daughters current occupational status: employed current occupation: [employer] How many Children do You have: 3 Feels Safe at Home: Yes Childhood Exposure to Second-Hand Smoke: No caffeine: Yes during the past year weight has: remained stable Dental Care, Regularly: Yes Physical Activity Frequency: 1-2 Times per Week Seatbelt Use: always Sunscreen Use: Yes Assistive Devices: Glasses Review of Systems A total of 10 systems reviewed and were otherwise negative Respiratory: no cough Cardiovascular: + chest pain Physical Exam Vital Signs Vital Signs - 24 hr 08/16/21 00:42 08/16/21 00:45 Temperature 36.7 C Temperature Source Temporal Artery Scan Pulse Rate 70 Respiratory Rate 22 Respiratory Effort / Characteristics Non-Labored Spontaneous Respiratory Depth Normal Respiratory Pattern Regular Blood Pressure 161/105 H Blood Pressure Mean 123 Blood Pressure Position Sitting Pulse Oximetry 99 99 Oxygen Delivery Method Room Air Room Air Sepsis Recent Fever Within 48 Hours No Sepsis New/Unexplained Change in Mental Status No Sepsis Action Taken by Nursing No Action Required VITAL SIGNS - Vital signs and nursing notes were reviewed. GENERAL -36-year-old female appearing her stated age who is in no acute distress . Communicates well with provider and answers questions appropriately. SKIN - Without rashes. HEAD - NC/AT. EYES - PERRL with EOMI bilaterally. Sclera anicteric. Palpebral conjunctiva pink and moist with no injection noted. EARS - No deformities of external structures noted on gross examination bila terally. NOSE - Midline and without cyanosis. No epistaxis or purulent drainage noted. MOUTH/OROPHARYNX - Without perioral cyanosis. Buccal mucosa pink and moist NECK - Neck with FROM. Supple to palpation. No nuchal rigidity. LUNGS - Chest wall symmetric without accessory muscle use, intercostals retractions, or central cyanosis. Normal vesicular breath sounds CTA B/L. No wheezes, rales, or rhonchi appreciated. CARDIAC - RRR with S1/S2. No murmur, rubs, or gallops appreciated. ABDOMEN - Abdominal contour soft without pulsations or visible masses. BS normoactive all four quadrants. No tenderness, palpable masses, hepatosplenomegaly, or ascites noted. EXTREMITIES - No clubbing or peripheral cyanosis. No pretibial edema present. Calves nontender. +5/5 strength noted in UE/LE bilaterally. NEUROLOGIC - Cranial nerves II through XII grossly intact. PSYCH - A&Ox3 and cooperates fully with examiner. Pt is very pleasant and interacts well with examiner. Course Reevaluation(s) Reevaluation #1: Patient resting in no distress, no current active chest pain, will admit for cardiac rule out Medical Decision Making Medical Records Attestation: I reviewed the patient's medical records. Laboratory Data Attestation: I reviewed the patient's lab results. Result diagrams: 08/16/21 01:03 08/16/21 01:03 Lab Results 08/16/21 08/16/21 08/16/21 Range/Units 01:03 01:03 01:03 WBC 10.16 (4.8-10.8) K/uL RBC 4.95 (4.2-5.4) M/uL Hgb 15.3 (12.0-16.0) g/dL Hct 45.7 (37-47) % MCV 92.3 (80-100) fL MCH 30.9 (25-34) pg MCHC 33.5 (32-36) g/dL RDW Std Deviation 45.9 (36.4-46.3) fL RDW Coeff of Hallie 13.6 (11.5-14.5) % Plt Count 315 (130-400) K/uL MPV 9.7 (7.4-10.4) fL Immature Gran % (Auto) 0.1 % Neut % (Auto) 63.5 % Lymph % (Auto) 28.5 % Bell % (Auto) 6.8 % Eos % (Auto) 1.0 % Baso % (Auto) 0.1 % Neut # (Auto) 6.45 (1.4-6.5) K/uL Lymph # (Auto) 2.90 (1.2-3.4) K/uL Bell # (Auto) 0.69 H (0.11-0.59) K/uL Eos # (Auto) 0.10 (0-0.5) K/uL Baso # (Auto) 0.01 (0-0.2) K/uL Immature Gran # (Auto) 0.01 (0.00-0.02) K/uL PT 10.6 (9.0-12.0) Seconds INR 1.0 (0.9-1.1) D-Dimer 410 (0-500) ug/L FEU Sodium 138 (136-145) mmol/L Potassium 3.8 (3.5-5.1) mmol/L Chloride 104 (98-107) mmol/L Carbon Dioxide 27 (21-32) mmol/L Anion Gap 7 (3-11) BUN 19 (6-23) mg/dl Creatinine 0.84 (0.6-1.2) mg/dl Est Cr Clr Drug Dosing 111.4 ml/min Est GFR ( Amer) 104.4 ml/min Est GFR (Non-Af Amer) 90.0 ml/min BUN/Creatinine Ratio 22.6 H (10-20) Glucose 84 (70-99(Fasting)) mg/dl Calcium 8.7 (8.5-10.1) mg/dl Total Bilirubin 0.4 (0.2-1.0) mg/dl AST 12 L (13-39) U/L ALT 12 (7-52) U/L Alkaline Phosphatase 65 (34-104) U/L Troponin I < 0.03 (0-0.04) ng/ml Total Protein 7.6 (6.0-8.3) gm/dl Albumin 4.1 (3.4-5.0) gm/dl Globulin 3.5 (2.5-4.0) gm/dl Albumin/Globulin Ratio 1.2 (0.9-2) SARS-CoV-2, RNA, NAAT (NEGATIVE) 08/16/21 Range/Units 01:17 WBC (4.8-10.8) K/uL RBC (4.2-5.4) M/uL Hgb (12.0-16.0) g/dL Hct (37-47) % MCV (80-100) fL MCH (25-34) pg MCHC (32-36) g/dL RDW Std Deviation (36.4-46.3) fL RDW Coeff of Hallie (11.5-14.5) % Plt Count (130-400) K/uL MPV (7.4-10.4) fL Immature Gran % (Auto) % Neut % (Auto) % Lymph % (Auto) % Bell % (Auto) % Eos % (Auto) % Baso % (Auto) % Neut # (Auto) (1.4-6.5) K/uL Lymph # (Auto) (1.2-3.4) K/uL Bell # (Auto) (0.11-0.59) K/uL Eos # (Auto) (0-0.5) K/uL Baso # (Auto) (0-0.2) K/uL Immature Gran # (Auto) (0.00-0.02) K/uL PT (9.0-12.0) Seconds INR (0.9-1.1) D-Dimer (0-500) ug/L FEU Sodium (136-145) mmol/L Potassium (3.5-5.1) mmol/L Chloride (98-107) mmol/L Carbon Dioxide (21-32) mmol/L Anion Gap (3-11) BUN (6-23) mg/dl Creatinine (0.6-1.2) mg/dl Est Cr Clr Drug Dosing ml/min Est GFR ( Amer) ml/min Est GFR (Non-Af Amer) ml/min BUN/Creatinine Ratio (10-20) Glucose (70-99(Fasting)) mg/dl Calcium (8.5-10.1) mg/dl Total Bilirubin (0.2-1.0) mg/dl AST (13-39) U/L ALT (7-52) U/L Alkaline Phosphatase (34-104) U/L Troponin I (0-0.04) ng/ml Total Protein (6.0-8.3) gm/dl Albumin (3.4-5.0) gm/dl Globulin (2.5-4.0) gm/dl Albumin/Globulin Ratio (0.9-2) SARS-CoV-2, RNA, NAAT NEGATIVE (NEGATIVE) Imaging Data Attestation: I personally reviewed and interpreted this imaging study as fo llows: My Impression: Chest x-ray interpreted by me negative for infiltrate normal mediastinum negative for pneumothorax MDM Narrative Medical decision making differential diagnosis includes angina unstable angina acute coronary syndrome acute [place] musculoskeletal chest pain gastritis. Will check EKG labs chest x-ray, patient has taken aspirin prior to arrival Impression & Plan Chest pain Discharge Plan Visit Data Chief Complaint: Chest Pain Stated Complaint: CHEST PRESSURE,JAW PAIN ED Provider: Paul Rodriguez Discharge Problem: Chest pain Forms Stand Alone Forms: My [facility] Prescriptions Prescriptions: No Action metformin 500 mg tablet See Rx Instructions PO BID Qty: 540 RF: 1 spironolactone 25 mg tablet 25 mg PO BID Qty: 180 RF: 1 famotidine [Pepcid] 20 mg tablet 20 mg PO HS Qty: 90 RF: 2 venlafaxine 150 mg capsule,extended release 24hr 150 mg PO DAILY Qty: 30 RF: 2 pantoprazole [Protonix] 40 mg tablet,delayed release (DR/EC) 40 mg PO DAILYBB RF: 0 cetirizine [Zyrtec] 10 mg Tablet 10 mg PO HS RF: 0 cholecalciferol (vitamin D3) 25 mcg (1,000 unit) capsule 50 mcg PO HS RF: 0 tamsulosin [Flomax] 0.4 mg capsule 0.4 mg PO HS Qty: 10 RF: 0 naproxen 500 mg tablet 500 mg PO BID PRN (Reason: Pain) RF: 0 penicillin V potassium 500 mg tablet 500 mg PO QID RF: 0 acetaminophen [Tylenol] 325 mg Tablet 650 mg PO DIRECTED PRN (Reason: PAIN/FEVER) RF: 0 Referrals Referrals: Janet Nayak DO [Primary Care Provider] - Discharge Problem: Chest pain Qualifiers: Chest pain type: unspecified Qualified Code(s): R07.9 - Chest pain, unspecified
[2021-08-16 01:20] LABS: Basophils # (auto) 0.01 K/uL (0-0.2); Basophils % (auto) 0.1 %; Hematocrit (blood only) 45.7 % (37-47); Hemoglobin 15.3 g/dL (12.0-16.0); Immature Granulocytes # (auto) 0.01 K/uL (0.00-0.02); Immature Granulocytes % (auto) 0.1 %; Lymphocytes % (auto) 28.5 %; Mean Corpuscular Hemoglobin 30.9 pg (25-34); Mean Corpuscular Hgb Conc 33.5 g/dL (32-36); Mean Corpuscular Volume 92.3 fL (80-100); Mean Platelet Volume 9.7 fL (7.4-10.4); Monocytes # (auto) 0.69 K/uL (0.11-0.59); Monocytes % (auto) 6.8 %; Neutrophils # (auto) 6.45 K/uL (1.4-6.5); Neutrophils % (auto) 63.5 %; Platelet Count 315 K/uL (130-400); RDW Coefficient of Variation 13.6 % (11.5-14.5); RDW Standard Deviation 45.9 fL (36.4-46.3); Red Blood Count 4.95 M/uL (4.2-5.4); White Blood Count 10.16 K/uL (4.8-10.8)
[2021-08-16 01:30] LABS: D Dimer 410 ug/L FEU (0-500); Prothrombin Time 10.6 Seconds (9.0-12.0)
[2021-08-16 01:41] LABS: Troponin I < 0.03 ng/ml (0-0.04)
[2021-08-16 01:47] LABS: Alanine Aminotransferase 12 U/L (7-52); Albumin Globulin Ratio 1.2 (0.9-2); Albumin Level 4.1 gm/dl (3.4-5.0); Alkaline Phosphatase 65 U/L (34-104); Anion Gap 7 (3-11); Aspartate Aminotransferase 12 U/L (13-39); BUN Creatinine Ratio 22.6 (10-20); Bilirubin,Total 0.4 mg/dl (0.2-1.0); Blood Urea Nitrogen 19 mg/dl (6-23); Calcium 8.7 mg/dl (8.5-10.1); Carbon Dioxide 27 mmol/L (21-32); Chloride 104 mmol/L (98-107); Creatinine Clr Calc Pharmacy 111.4 ml/min; Est GFR (African American) 104.4 ml/min; Globulin 3.5 gm/dl (2.5-4.0); Glucose 84 mg/dl (70-99(Fasting)); Potassium 3.8 mmol/L (3.5-5.1); Sodium 138 mmol/L (136-145); Total Protein 7.6 gm/dl (6.0-8.3)
[2021-08-16] MEDS ORDERED: ACETAMINOPHEN 500 MG TAB PO STA (02:01)
--- NOTE | 2021-08-16 03:11 | History & Physical Report ---
Date of Service August 16, 2021 Assessment & Plan (1) Chest pain: Plan: Patient has a heart score of 1 possibly 2 given her history. We will get a second troponin approximately 5:00 AM if the troponin is negative and has no further he issues with EKG changes etc. perform stress testing. At this time will continue on aspirin we will check a fasting lipid and hemoglobin A1c in the morning she will have oxygen therapy and be offered pain medication Appointment with primary care June 29, 2021 notes moderate stressors at home patient is significant somatic complaints including chronic abdominal pain fibromyalgia etc. Sternum I am initial read was that this could be more of a stress related issue however giving her the benefit of the doubt we will proceed with cardiac evaluation. (2) Prediabetes: Plan: Patient takes Metformin for which she described as prediabetes we will check a hemoglobin A1c was counseled about the importance if her cardiac evaluation is negative of improving her modifiable risk factors. (3) Anxiety: Plan: Patient seems no significant anxiety here in the emergency department Patient takes venlafaxine 150 mg a day and she sees Dr. Nayak and I recommended she continue to discuss this issue with her (4) Obstructive sleep apnea: Plan: The past the patient is not wish to wear any type of assistive devices for sleep apnea (5) Chronic gastritis: Plan: As mentioned in the HPI the patient takes both tonics and Pepcid History of Present Illness Primary Care Provider: Janet Nayak, DO 36-year-old female presents to the emergency department with substernal chest pressure that began while she was laying down to sleep. She states it radiates to her left jaw and slightly down her left shoulder. Patient takes both a PPI and H2 valeria for reflux. Patient is a smoker and diabetic. Patient states she has good family members and her grandparents generation that have had heart attacks younger than the age of 65 in the emergency department she had EKG without acute changes and negative troponin and negative laboratory work. She is mildly hypertensive and states that her pain is had no resolution. Patient took an aspirin prior to arrival she is a Covid test that is negative. She says that her jaw pain is her biggest issue right now. She denies recently increasing physical activity or having injury to her jaw. Allergies Allergy/AdvReac Type Severity Reaction Status Date / Time hyoscyamine Allergy Severe ANAPHYLAXIS Verified 08/16/21 01:42 meloxicam Allergy Severe HIVES Verified 08/16/21 01:42 ondansetron Allergy Severe HIVES Verified 08/16/21 01:42 Sulfa (Sulfonamide Allergy Severe HIVES-N/V Verified 08/16/21 01:42 Antibiotics) methocarbamol Allergy Intermediate RASH Verified 08/16/21 01:42 cyclobenzaprine AdvReac Severe INCREASES Verified 08/16/21 01:42 ANXIETY haloperidol AdvReac Severe INCREASES Verified 08/16/21 01:42 ANXIETY sodium metabisulfite AdvReac Severe INCREASES Verified 08/16/21 01:42 ANXIETY cephalexin AdvReac Intermediate DIARRHEA Verified 08/16/21 01:42 nitrofurantoin AdvReac Intermediate DIARRHEA-NA Verified 08/16/21 01:42 USEA promethazine AdvReac Intermediate GI SYMPTOMS Verified 08/16/21 01:42 sertraline AdvReac Intermediate TMJ Verified 08/16/21 01:42 REACTION SALIDEX Allergy Severe HIVES Uncoded 08/16/21 01:42 Home Medications Medication Instructions Recorded Confirmed Type pantoprazole 40 mg tablet,delayed 40 mg PO DAILYBB 03/15/20 08/16/21 History release (Protonix) cetirizine 10 mg tablet (Zyrtec) 10 mg PO HS 03/30/20 08/16/21 History cholecalciferol (vitamin D3) 25 50 mcg PO HS 03/30/20 08/16/21 History mcg (1,000 unit) capsule metformin 500 mg tablet See Rx Instructions PO BID #540 tab 09/30/20 08/16/21 Rx acetaminophen 325 mg tablet 650 mg PO DIRECTED PRN 06/21/21 08/16/21 History (Tylenol) tamsulosin 0.4 mg capsule (Flomax) 0.4 mg PO HS #10 cap 06/27/21 08/16/21 Rx venlafaxine 150 mg 150 mg PO DAILY #30 cap 06/29/21 08/16/21 Rx capsule,extended release 24 hr famotidine 20 mg tablet (Pepcid) 20 mg PO HS #90 tab 07/01/21 08/16/21 Rx spironolactone 25 mg tablet 25 mg PO BID #180 tab 07/01/21 08/16/21 Rx naproxen 500 mg tablet 500 mg PO BID PRN 08/16/21 08/16/21 History penicillin V potassium 500 mg 500 mg PO QID 08/16/21 08/16/21 History tablet Past Med/Surg History Medical History (Updated 08/16/21 @ 02:04 by Paul Rodriguez DO) Abdominal pain Anxiety Asthma no inh Chronic gastritis Delayed gastric emptying Diverticular disease Fibromyalgia Morbid obesity with BMI of 40.0-44.9, adult Nephrolithiasis hx PCOS (polycystic ovarian syndrome) PONV (postoperative nausea and vomiting) Prediabetes Sleep apnea does not tolerate CPAP TMJ (temporomandibular joint disorder) hx locking Surgical History H/O LEEP History of colonoscopy History of esophagogastroduodenoscopy (EGD) S/P laparoscopy S/P tubal ligation Status post cholecystectomy (03/2011) Status post hysterectomy (01/2015) secondary to DUB, still w/ ovaries [place] teeth extracted Family History Mother Alcohol abuse Anxiety Depression Diverticulitis Hypertension Father Diabetes Alcohol abuse Deep vein thrombosis Depression Hypertension Brother Anxiety Depression Sister Anxiety Depression PCOS (polycystic ovarian syndrome) Aunt Breast cancer Maternal Aunt Grandfather (Maternal) Coronary heart disease Myocardial infarction, Onset Age: 63 Grandmother (Paternal) Alcohol abuse Liver cirrhosis Other No family history of adverse response to anesthesia Denies family history of Ovarian cancer Prostate cancer Crohn's disease Colorectal cancer Ulcerative colitis Social History Smoking Status: Current every day smoker Tobacco Type: Cigarettes Age Started Using Tobacco: 15; packs per day: 0.5; Cigarettes Per Day: 7-10; Second Hand Exposure: No; Hx Alcohol Use: No Hx Substance Use: No Preferred Language: Tuvaluan Communication Ability: Effective Visual Impairment: No Limitations Hearing Ability: Normal Regulatory Affairs Specialist Required: No Beliefs That Will Affect Care: None marital status: Current Living Situation: Spouse Current Living Situation Comment: Lives with spouse and 2 daughters current occupational status: employed current occupation: [employer] How many Children do You have: 3 Feels Safe at Home: Yes Childhood Exposure to Second-Hand Smoke: No caffeine: Yes during the past year weight has: remained stable Dental Care, Regularly: Yes Physical Activity Frequency: 1-2 Times per Week Seatbelt Use: always Sunscreen Use: Yes Assistive Devices: Glasses Review of Systems Review of Systems: Moderate distress and fatigue no headache, no visual changes no speech or swallowing issues Substernal chest pain, scribed as a pressure getting at rest rating to her arm and jaw no other associated symptoms no shortness of breath, cough or wheezes no abdominal pain, nausea or vomiting, diarrhea or constipation no dysuria, hematuria or frequency no focal joint pain or swelling no back pain, CVA tenderness or radicular pain no bruising, bleeding or rashes no focal signs of weakness or numbness or altered sensation no complaints of anxiety or depression.. Physical Exam Physical Exam: The patient appeared well nourished and normally developed. She was tearful in the emergency department Vital signs as documented. Head exam is normocephalic atraumatic Reproducible left jaw pain when palpating her temporomandibular joint Neck is without JVD, thyromegaly, or carotid bruits. Lungs are clear to auscultation, no focal loss of breath sounds Cardiac exam, Rhythm is regular.. No murmurs, rubs or gallops. No reproducible chest pain with musculoskeletal examination of the chest wall Abdominal exam reveals normal bowel sounds, soft non tender, no masses Extremities are nonedematous and both pedal pulses are present Neurologic exam is alert and oriented, no focal loss of strength or sensation Skin is without bruises or rashes Psychologically is without concerns for anxiety or depression.. Results & Data Results & Data ([facility]) Vital Signs (Past 12 Hours) Vital Signs Temp Pulse Resp BP Pulse Ox 08/16/21 00:45 98.1 F 70 22 161/105 H 99 08/16/21 00:42 99 Diagnostic Findings Chest x-ray is unremarkable ECG Additional Comments: EKG is acute ST or T wave changes heart score heart score Code Status & VTE Plan VTE Prophylaxis Plan VTE Prophylaxis will be ordered: No PG Care Time/CCT Total # of Minutes Spent Total Time Spent with Patient: Total time spent is greater than 50% in coordination of care (as documented) at patient's floor/unit and/or counseling patient: Coding Level of Care Code INT OBSERVATION CARE 50M LVL 2 Diagnoses Chest pain R07.9 Chest pain type: unspecified Anxiety F41.9 Obstructive sleep apnea G47.33 Chronic gastritis K29.50 Prediabetes R73.03 (1) Chest pain Chest pain type: unspecified Qualified Code(s): R07.9 - Chest pain, unspecified
[2021-08-16] MEDS ORDERED: LORazepam 0.5 MG TAB PO PRN (04:01)
[2021-08-16] MEDS ORDERED: ALUMINUM/MAGNESIUM SUSP 30 ML UDC PO PRN (04:01)
[2021-08-16] MEDS ORDERED: ONDANSETRON INJ 2 MG/ML 2 ML VIAL IV PRN (04:01)
[2021-08-16] MEDS ORDERED: NITROGLYCERIN SL 0.4 MG/TAB TAB SL PRN (04:01)
[2021-08-16] MEDS ORDERED: ALUMINUM/MAGNESIUM SUSP 18 ML, LIDOCAINE VISCOUS 2% SOLN 6 ML, BARCODE IDENTIFIER 1 EA PO ONE (04:30)
[2021-08-16] MEDS: MoRPHine SULFATE 2 MG/ML CARP IV PRN ×4 (04:40→15:05)
[2021-08-16] MEDS ORDERED: PANTOprazole 40 MG TAB PO SCH (06:30)
--- NOTE | 2021-08-16 07:50 | XRay Report ---
XR chest 1V portable HISTORY: Atypical Chest Pain COMPARISON: None. FINDINGS: The lungs are clear. Cardiac silhouette is borderline enlarged. No pleural effusions. No pn eumothorax. IMPRESSION: Borderline cardiomegaly. Otherwise, no acute process within the chest. ACT 112: Negative or not required by law. Electronically signed by: Gilles Li M.D. 08/16/2021 7:49 AM
[2021-08-16 08:18] LABS: Estimated Average Glucose 120 mg/dl; Hemoglobin A1C 5.8 % (4.5-5.6)
[2021-08-16] MEDS ORDERED: SPIRONOLACTONE 25 MG TAB PO SCH (09:00)
[2021-08-16] MEDS ORDERED: VENLAFAXINE HCL XR 150 MG CAPXR PO SCH (09:00)
[2021-08-16] MEDS ORDERED: ASPIRIN 81 MG ECTAB PO SCH (09:00)
[2021-08-16 09:27] LABS: Troponin I < 0.03 ng/ml (0-0.04)
[2021-08-16 09:32] LABS: Anion Gap 8 (3-11); BUN Creatinine Ratio 23.9 (10-20); Blood Urea Nitrogen 17 mg/dl (6-23); Calcium 8.5 mg/dl (8.5-10.1); Carbon Dioxide 24 mmol/L (21-32); Chloride 106 mmol/L (98-107); Chol HDL Ratio 5.1 (0-5); Cholesterol 198 mg/dl (0-200); Creatinine Clr Calc Pharmacy 131.4 ml/min; Est GFR (African American) 127.9 ml/min; Est GFR (Non-African American) 110.4 ml/min; Glucose 92 mg/dl (70-99(Fasting)); HDL Cholesterol 39 mg/dl; LDL Cholesterol Calculated 131 mg/dl; Potassium 4.1 mmol/L (3.5-5.1); Sodium 138 mmol/L (136-145); Triglycerides 138 mg/dl (0-150); VLDL Cholesterol 28 mg/dl (0-30)
--- NOTE | 2021-08-16 11:39 | XCELERA ---
[id number]
--- NOTE | 2021-08-16 15:14 | Electrocardiogram Report ---
Test Reason : Blood Pressure : / mmHG Vent. Rate : 063 BPM Atrial Rate : 063 BPM P-R Int : 162 ms QRS Dur : 122 ms QT Int : 410 ms P-R-T Axes : 074 036 067 degrees QTc Int : 419 ms Normal sinus rhythm Right bundle branch block Borderline ECG When compared with ECG of 16-AUG-2021 00:56, Right bundle branch block now complete Confirmed by Gurpreet Leal ([id number]) on 08/16/2021 3:13:33 PM Referred By: REFERRED SELF Confirmed By:Gurpreet Leal
--- NOTE | 2021-08-16 15:46 | Electrocardiogram Report ---
Test Reason : Blood Pressure : / mmHG Vent. Rate : 067 BPM Atrial Rate : 067 BPM P-R Int : 160 ms QRS Dur : 116 ms QT Int : 404 ms P-R-T Axes : 053 013 039 degrees QTc Int : 426 ms Normal sinus rhythm Low voltage QRS Borderline ECG No previous ECGs available Confirmed by Gurpreet Leal ([id number]) on 08/16/2021 3:46:35 PM Referred By: REFERRED SELF Confirmed By:Gurpreet Leal
--- NOTE | 2021-08-16 16:06 | Discharge Summary ---
Date of Service August 16, 2021 Admission HPI Per Admitting Provider 36-year-old female presents to the emergency department with substernal chest pressure that began while she was laying down to sleep. She states it radiates to her left jaw and slightly down her left shoulder. Patient takes both a PPI and H2 valeria for reflux. Patient is a smoker and diabetic. Patient states she has good family members and her grandparents generation that have had heart attacks younger than the age of 65 in the emergency department she had EKG without acute changes and negative troponin and negative laboratory work. She is mildly hypertensive and states that her pain is had no resolution. Patient took an aspirin prior to arrival she is a Covid test that is negative. She says that her jaw pain is her biggest issue right now. She denies recently increasing physical activity or having injury to her jaw. Principal Diagnosis Chest pain, not typical of coronary disease Discharge Exam No acute distress Heart regular rate and rhythm Vital Signs Temp Pulse Pulse Resp BP BP Pulse Ox 08/16/21 14:41 36.4 C L 69 20 119/82 93 08/16/21 11:32 36.8 C 70 18 132/92 93 08/16/21 07:40 36.4 C L 08/16/21 07:22 69 16 130/58 L 95 08/16/21 07:00 78 08/16/21 04:59 70 16 125/84 96 08/16/21 04:35 67 16 119/81 95 08/16/21 04:04 36.5 C 70 20 150/92 H 96 08/16/21 03:55 70 08/16/21 03:15 61 16 152/94 H 98 08/16/21 00:45 36.7 C 70 22 161/105 H 99 08/16/21 00:42 99 Intake and Output 08/16/21 08/16/21 08/16/21 06:59 14:59 22:59 Intake Total 175 / 175 Balance 175 / 175 Intake: Oral 175 / 175 Other: Other Intake Source ICE CHIPS Weight 109.54 kg Weight Measurement Method Built in [facility] Discharge Data Allergies Allergy/AdvReac Type Severity Reaction Status Date / Time hyoscyamine Allergy Severe ANAPHYLAXIS Verified 08/16/21 01:42 meloxicam Allergy Severe HIVES Verified 08/16/21 01:42 ondansetron Allergy Severe HIVES Verified 08/16/21 01:42 salicylic acid Allergy Severe Hives to Verified 08/16/21 04:11 Salidex Sulfa (Sulfonamide Allergy Severe HIVES-N/V Verified 08/16/21 01:42 Antibiotics) methocarbamol Allergy Intermediate RASH Verified 08/16/21 01:42 cyclobenzaprine AdvReac Severe INCREASES Verified 08/16/21 01:42 ANXIETY haloperidol AdvReac Severe INCREASES Verified 08/16/21 01:42 ANXIETY sodium metabisulfite AdvReac Severe INCREASES Verified 08/16/21 01:42 ANXIETY cephalexin AdvReac Intermediate DIARRHEA Verified 08/16/21 01:42 nitrofurantoin AdvReac Intermediate DIARRHEA-NA Verified 08/16/21 01:42 USEA promethazine AdvReac Intermediate GI SYMPTOMS Verified 08/16/21 01:42 sertraline AdvReac Intermediate TMJ Verified 08/16/21 01:42 REACTION Consultations 08/16/21 02:44 ED Decision to Admit Stat Hospital Course (1) Chest pain: Stress echo negative for ischemia; when I saw her she was without complaints and desired dischargefollow-up with PCP (2) Prediabetes: A1c 5.8no change to home Metformin (3) Anxiety: Patient seems no significant anxiety here in the emergency department Patient takes venlafaxine 150 mg a day and should follow-up with PCP (4) Obstructive sleep apnea: The past the patient is not wish to wear any type of assistive devices for sleep apnea (5) Chronic gastritis: Continue home therapy; can consider GI consultation as outpatientdefer to PCP Total Time Total Time Spent Total Time Spent (In Minutes): 25 Discharge Plan Discharge Items Patient Disposition: Home - Self-Care Reason For Visit: CHEST PAIN Discharge Diagnosis: Chest pain, atypical for coronary disease Activity: Resume your previous activity Non-emergency contact: Primary Care Provider Call non-emergency contact if: your symptoms worsen Follow-up/Referrals: Janet Nayak DO [Primary Care Provider] - (Post discharge follow-up within a week) Diet: Regular Addtl Attending Provider Instructions: Follow-up with your primary provider within a week or so; do not drive till tomorrow morning since you have been given morphine Pending Studies at Discharge: No Stand-Alone Forms: [employer], Smoking Cessation Medications and DC Order Prescriptions: Continued metformin 500 mg tablet See Rx Instructions PO BID Qty: 540 RF: 1 spironolactone 25 mg tablet 25 mg PO BID Qty: 180 RF: 1 famotidine [Pepcid] 20 mg tablet 20 mg PO HS Qty: 90 RF: 2 venlafaxine 150 mg capsule,extended release 24hr 150 mg PO DAILY Qty: 30 RF: 2 pantoprazole [Protonix] 40 mg tablet,delayed release (DR/EC) 40 mg PO DAILYBB RF: 0 cetirizine [Zyrtec] 10 mg Tablet 10 mg PO HS RF: 0 cholecalciferol (vitamin D3) 25 mcg (1,000 unit) capsule 50 mcg PO HS RF: 0 tamsulosin [Flomax] 0.4 mg capsule 0.4 mg PO HS Qty: 10 RF: 0 naproxen 500 mg tablet 500 mg PO BID PRN (Reason: Pain) RF: 0 penicillin V potassium 500 mg tablet 500 mg PO QID RF: 0 acetaminophen [Tylenol] 325 mg Tablet 650 mg PO DIRECTED PRN (Reason: PAIN/FEVER) RF: 0 Discharge Orders: Discharge Order (Routine); Ordered 08/16/21 Ordered By: Lizz Hernandez Admission Data Admit Date/Time: 08/16/21 02:34 Attending Provider: Lizz Hernandez Admit Provider: Tristian Ramirez Primary Care Provider: Janet Nayak Other Providers: Tristian Ramirez Coding Level of Care Code 76187 OBS Care - Discharge Diagnoses Chest pain R07.9 Chest pain type: unspecified Prediabetes R73.03 Anxiety F41.9 Obstructive sleep apnea G47.33 Chronic gastritis K29.50
[2021-08-16] MEDS ORDERED: TAMSULOSIN HCL 0.4 MG CAP PO SCH (21:00)
== END 2021-08-16 17:46 | disposition home or self-care (01) ==
LOC: 2N 00:41 → ED 00:41 → SUATTDRO 02:34 → 2N 03:44